=== PATIENT | female | born 1985 ===

== ENCOUNTER 2024-04-02 10:35 | Outpatient (AMB) | payer OTHER, SELFPAY ==
--- OUTSIDE RECORDS SUMMARY | 2024-04-02 10:36 | XMS_ITS | Continuity of Care Document ---
Author Organization [facility] ter Address [address] [place] [address]- Care Team Providers Care Laboratory Coordinator Name Role Phone Arjun LUJAN, Stefany Powers Primary Care Physician [phone] Encounter [facility] Date(s): 02/14/24 - 03/21/[address] [address] Attending Physician: [place] LUJAN, Dionne Grossman Admitting Physician: Dionne Salvador NP Referring Physician: Dionne Salvador NP Encounter Type: Pre-Outpt Allergies, Adverse Reactions, Alerts Substance Criticality Severity Reaction Reaction Severity Status Bee Stings Unable to assess criticality Persistent Severe Active Immunizations Given and Recorded Vaccine Date Status Refusal Reason influenza virus vaccine, inactivated 1 03/15/24 Gi curtis pneumococcal 20-valent conjugate vaccine 2 03/14/24 Given 1Early/Late Reason: Early/Late Reason: Wean to Standard Admin Times 2Early/Late Reason: Early/Late Reason: Wean to Standard Admin Times Medications acamprosate 333 mg oral delayed release tablet 2 tablet = 666 mg, By Mouth, 3 times a day, # 42 tablet, 0 Refills, Maintenance, 11/05/23 8:54:00 AM EDT, Tablet, [facility]/pharmacy #[id number], Partial fill upon patient request if the prescription is for a schedule II opioid drug., 160, cm, 11/05/23 8:46:00 EDT, Height, 57.7, kg, 11/05/23 8:46:00 EDT, Dry Weight Start Date: 11/05/23 Stop Date: 11/12/23 Status: Ordered Quantity: 42.0 Unit: tablet Repeat number: 1 citalopram 20 mg oral tablet = 20 mg, By Mouth, Daily, # 7 tablet, 0 Refills, Maintenance, 11/05/23 8:54:00 AM EDT, Tablet, [facility]/pharmacy #[id number], Partial fill upon patient request if the prescription is for a schedule II opioid drug., 160, cm, 11/05/23 8:46:00 EDT, Height, 57.7, kg, 11/05/23 8:46:00 EDT, Dry Weight Start Date: 11/05/23 Stop Date: 11/12/23 Status: Ordered Quantity: 7.0 Unit: tablet Repeat number: 1 Dandelion 0 Refills, Maintenance, 02/09/24 8:53:00 AM EST, Partial fill upon patient request if the prescription is for a schedule II opioid drug. Start Date: 02/09/24 Status: Ordered Repeat number: 1 dexamethasone 4 mg oral tablet 2 tablet = 8 mg, By Mouth, 2 times a day, Take 8 mg by mouth twice daily x 3 days starting the day before chemotherapy, # 12 tablet, 6 Refills, Maintenance, 03/13/24 1:18:00 PM EST, [facility]/pharmacy #[id number], Partial fill upon patient request if the prescription is for a schedule II opioid drug., 161, cm,03/12/24 6:48:00 EST, Height, 52.5, kg, 03/12/24 6:48:00 EST, Dry Weight Start Date: 03/13/24 Status: Ordered Quantity: 12.0 Unit: tablet Repeat number: 7 gabapentin 400 mg oral capsule 800 mg, By Mouth, 3 times a day, # 42 capsule, Refills 0, Tot. Refills 0, Maintenance, 11/05/23 8:54:00 AM EDT, Route to Pharmacy Electronically, [facility]/pharmacy #[id number], Partial fill upon patient request if the prescription is for a schedule II opioid drug., 160, cm, 11/05/23 8:46:00 EDT, Height, 57.7, kg, 11/05/23 8:46:00 EDT, Dry Weight Start Date: 11/05/23 Stop Date: 11/12/23 Status: Ordered Quantity: 42.0 Unit: capsule Repeat number: 1 hydrOXYzine hydrochloride 25 mg oral tablet 0 Refills, Maintenance, 02/09/24 8:52:00 AM EST, Partial fill upon patient request if the prescription is for a schedule II opioid drug. Start Date: 02/09/24 Status: Ordered Repeat number: 1 lidocaine-prilocaine 2.5%-2.5% topical cream 1 application, Topically, Once, # 30 Gm, 0 Refills, Soft Stop, 03/13/24 1:19:00 PM EST, Cream, [facility]/pharmacy #[id number], Partial fill upon patient request if the prescription is for a schedule II opioid drug., 1 application Topically Once, 161, cm, 03/12/24 6:48:00 EST, Height, 52.5, kg, 03/12/24 6:48:00EST, Dry Weight Start Date: 03/13/24 Status: Ordered Quantity: 30.0 Unit: g Repeat number: 1 miracle mouth wash miracle mouth wash, See Instructions, # 580 mL, Refills 0, Tot. Refills 0, Maintenance, Benadryl elixir 4 oz, nystatin susp (100,000 u/ml) 4 0z, lidocaine visc 2% 100mL, mylanta 8 oz 5-10 mL swish and spit every 2 hrs PRN mouth sores, 03/20/24 3:29:00 PM EST, Supply, 161.3, cm, 03/20/24 8:32:00 EST, Height, 52.3, kg, 03/20/24 8:32:00 EST, Dry Weight Start Date: 03/20/24 Status: Ordered Quantity: 580.0 Unit: mL Repeat number: 1 nystatin 046139 u/ml oral suspension 5 mL = 500,000 units, By Mouth, 4 times a day, for 7 days, swish and swallow, # 140 mL, 0 Refills, Acute 03/27/24 3:29:00 PM EST, 03/20/24 3:29:00 PM EST, Suspension, [facility]/pharmacy #[id number], Partial fillupon patient request if the prescription is for a schedule II opioid drug., 161.3, cm, 03/20/24 8:32:00 EST, Height, 52.3, kg, 03/20/24 8:32:00 EST, Dry Weight Start Date: 03/20/24 Stop Date: 03/27/24 Status: Ordered Quantity: 140.0 Unit: mL Repeat number: 1 ondansetron 8 mg oral tablet 1 tablet = 8 mg, By Mouth, Every 8 hours, PRN Nausea & Vomiting, # 30 tablet, 0 Refills, Maintenance, 03/13/24 1:18:00 PM EST, Tablet, [facility]/pharmacy #[id number], Partial fill upon patient request if theprescription is for a schedule II opioid drug., 161, cm, 03/12/24 6:48:00 EST, Height, 52.5, kg, 03/12/24 6:48:00 EST, Dry Weight Start Date: 03/13/24 Status: Ordered Quantity: 30.0 Unit: tablet Repeat number: 1 prochlorperazine 10 mg oral tablet 1 tablet = 10 mg, By Mouth, 3 times a day, PRN Nausea & Vomiting, # 30 tablet, 0 Refills, Maintenance, 03/13/24 1:18:00 PM EST, [facility]/pharmacy #[id number], Partial fill upon patient request if the prescription is for a schedule II opioid drug., 161, cm, 03/12/24 6:48:00 EST, Height, 52.5, kg, 03/12/24 6:48:00 EST, Dry Weight Start Date: 03/13/24 Status: Ordered Quantity: 30.0 Unit: tablet Repeat number: 1 propranolol 10 mg oral tablet 10 mg, By Mouth, 2 times a day, # 14 tablet, Refills 0, Tot. Refills 0, Maintenance, 11/05/23 8:54:00AM EDT, Route to Pharmacy Electronically, [facility]/pharmacy #[id number], Partial fill upon patient request if the prescription is for a schedule II opioid drug., 160, cm, 11/05/23 8:46:00 EDT, Height, 57.7, kg, 11/05/23 8:46:00 EDT, Dry Weight Start Date: 11/05/23 Stop Date: 11/12/23 Status: Ordered Quantity: 14.0 Unit: tablet Repeat number: 1 traZODone 50 mg oral tablet Refills 0, Maintenance, 02/09/24 8:52:00 AM EST, Partial fill upon patient request if the prescription is for a schedule II opioid drug. Start Date: 02/09/24 Status: Ordered Repeat number: 1 Problem List Condition Confirmation Course Effective Dates Status Health St atus Informant Breast cancer, left breast Confirmed Active Substance use disorder Confirmed Active Social History Social History Type Response Smoking Status Former smoker, quit more than 30 days ago entered on: 02/22/24 Sex Sex Representation Female (finding) Patient Care team information Care Team Personnel Name: Stefany Díaz NP Position: [facility] Outreach Member Role: PCP Address: [address] [place] [address] Telecom: Name: Naif Calhoun RN Position: [facility] Onco RN Member Role: Primary Care Nurse Care Team Related Persons Name: VIPUL CHESTER Insurance Providers Guarantor name: MORIS CHESTER Health Plan Information #: 1 Payer: [employer] Member Number: [id number] Policy Number: NA Group Number: NA Health Plan Information #: 2 Payer: [employer] Member Number: [id number] Policy Number: NA Group Number: NA
--- OUTSIDE RECORDS SUMMARY | 2024-04-02 10:36 | XMS_ITS | Continuity of Care Document ---
Author Organization [facility] Address [address] [place] [address]- Care Team Providers Care Finishing And Shipping Supervisor Name Role Phone Arjun LUJAN, Stefany Powers Primary Care Physician [phone] Encounter [facility] Date(s): 02/08/24 - 03/09/24 [facility] [address] [place] [address]- Encounter Type: Triage Allergies, Adverse Reactions, Alerts Substance Criticality Severity Reaction Reaction Severity Status Bee Stings Unable to assess criticality Persistent Severe Active Medications acamprosate 333 mg oral delayed release tablet 2 tablet = 666 mg, By Mouth, 3 times a day, # 42 tablet, 0 Refills, Maintenance, 11/05/23 8:54:00 AM EDT, Tablet, [facility]/pharmacy #[id number], Partial fill upon patient request if [...] Refills, Maintenance, 11/05/23 8:54:00 AM EDT, Tablet, [id number], Partial fill upon patient request if [...] Date: 02/09/24 Status: Ordered Repeat number: 1 gabapentin 400 mg oral capsule 800 mg, By Mouth, 3 times a day, # 42 capsule, Refills 0, Tot. Refills 0, Maintenance, 11/05/23 8:54:00 AM EDT, Route to Pharmacy Electronically, [facility]/pharmacy #[id number], Partial fill upon patient request [...] Date: 02/09/24 Status: Ordered Repeat number: 1 propranolol 10 mg oral tablet 10 mg, By Mouth, 2 times a day, # 14 tablet, Refills 0, Tot. Refills 0, Maintenance, 11/05/23 8:54:00AM EDT, Route to Pharmacy Electronically, [facility]/pharmacy #[id number], Partial fill upon patient request [...] a schedule II opioid drug. Start Date: 11/7/24 Status: Ordered Repeat number: 1 Problem List [...] Team Personnel Name: Stefany Díaz NP Position: S Outreach Member Role: PCP Address: [address] [place] [address] Telecom: Care Team Related Persons Name: VIPUL CHESTER Insurance Providers Guarantor name: MORIS NEMO Health Plan Information #: 1 Payer: [employer] Member Number: NA Policy Number: NA Group Number: NA
--- OUTSIDE RECORDS SUMMARY | 2024-04-02 10:36 | XMS_ITS | Continuity of Care Document ---
Author Organization [facility] Address [address] [place] [address]- Care Team Providers Care National Account Manager Name Role Phone Arjun LUJAN, Stefany Powers Primary Care Physician [id number] Date(s): 02/24/24 - 03/25/24 [facility] [address] [place] [id number] Encounter Type: Triage Allergies, Adverse Reactions, Alerts [...] Maintenance, 11/05/23 8:54:00 AM EDT, Tablet, [id number], Partial fill upon patient request if the prescription is for a schedule II opioid drug., 160, cm, 11/05/23 8:46:00 EDT, Height, 57.7, kg, 11/05/23 8:46:00 EDT, Dry Weight Start Date: 11/05/23 Stop Date: 11/12/23 Status: Ordered Quantity: 42.0 Unit: tablet Repeat number: 1 citalopram 20 mg oral tablet = 20 mg, By Mouth, Daily, # 7 tablet, 0 Refills, Maintenance, 8/3/24 8:54:00 AM EDT, Tablet, [facility]/pharmacy #[id number], Partial fill upon [...] 6 Refills, Maintenance, 03/13/24 1:18:00 PM EST, [facility]/pharmacy #[id number], Partial fill upon [...] 8:54:00 AM EDT, Route to Pharmacy Electronically, [facility]/pharmacy #[id number], Partial fill upon [...] Soft Stop, 03/13/24 1:19:00 PM EST, Cream, [facility]/pharmacy #[id number], Partial fill upon [...] 580.0 Unit: mL Repeat number: 1 nystatin 835209 u/ml oral suspension 5 mL = 500,000 units, By Mouth, 4 times a day, for 7 days, swish and swallow, # 140 mL, 0 Refills, Acute 03/27/24 3:29:00 PM EST, 03/20/24 3:29:00 PM EST, Suspension, [facility]/pharmacy #[id number], Partial fillupon patient request if [...] Refills, Maintenance, 03/13/24 1:18:00 PM EST, Tablet, [facility]/pharmacy #[id number], Partial fill upon [...] 0 Refills, Maintenance, 03/13/24 1:18:00 PM EST, [facility]/pharmacy #[id number], Partial fill upon [...] 11/05/23 8:54:00AM EDT, Route to Pharmacy Electronically, [facility]/pharmacy #[id number], Partial fill upon [...] Team Personnel Name: Stefany Díaz NP Position: [facility] Outreach Member Role: PCP Address: [address] [place] [id number] Telecom: Name: Naif Calhoun RN Position: [facility] Onco RN Member Role: Primary Care Nurse Care Team Related Persons Name: VIPUL CHESTER Insurance Providers Guarantor name: MORIS [facility] Information #: 1 Payer: [employer] Member Number: NA Policy Number: NA Group Number: NA
--- OUTSIDE RECORDS SUMMARY | 2024-04-02 10:36 | XMS_ITS | Continuity of Care Document ---
Author Organization [facility] Address [address] [place] [address]- Care Team Providers Care No Experience Name Role Phone Arjun LUJAN, Stefany Powers Primary Care Physician Encounter [facility] Date(s): 02/14/24 - 03/15/24 [facility] [address] [place] [address]- Encounter Type: Triage Allergies, Adverse Reactions, Alerts [...] Refills, Maintenance, 11/05/23 8:54:00 AM EDT, Tablet, [facility]/pharmacy #[id number], Partial fill upon patient request [...] 6 Refills, Maintenance, 03/13/24 1:18:00 PM EST, [facility]/pharmacy #[id number], Partial fill upon patient request [...] 8:54:00 AM EDT, Route to Pharmacy Electronically, [facility]/pharmacy #[id number], Partial fill upon patient request [...] Soft Stop, 03/13/24 1:19:00 PM EST, Cream, [facility]/pharmacy #[id number], Partial fill upon patient request if the prescription is for a schedule II opioid drug., 1 application Topically Once, 161, cm, 03/12/24 6:48:00 EST, Height, 52.5, kg, 03/12/24 6:48:00EST, Dry Weight Start Date: 03/13/24 Status: Ordered Quantity: 30.0 Unit: g Repeat number: 1 ondansetron 8 mg oral tablet 1 tablet = 8 mg, By Mouth, Every 8 hours, PRN Nausea & Vomiting, # 30 tablet, 0 Refills, Maintenance, 03/13/24 1:18:00 PM EST, Tablet, [facility]/pharmacy #[id number], Partial fill upon patient request [...] 0 Refills, Maintenance, 03/13/24 1:18:00 PM EST, [facility]/pharmacy #[id number], Partial fill upon patient request [...] 11/05/23 8:54:00AM EDT, Route to Pharmacy Electronically, [facility]/pharmacy #[id number], Partial fill upon patient request [...] Team Personnel Name: Stefany Díaz NP Position: [facility] Outreach Member Role: PCP Address: [address] [place] [address] Telecom: Name: Naif Calhoun RN Position: [facility] Onco RN Member Role: Primary Care Nurse Care Team Related Persons Name: VIPUL CHESTER Insurance Providers Guarantor name: MORIS CHESTER Health Plan Information #: 1 Payer: [employer] Member Number: NA Policy Number: NA Group Number: NA
--- OUTSIDE RECORDS SUMMARY | 2024-04-02 10:36 | XMS_ITS | Continuity of Care Document ---
Author Organization [facility] ter Address [address] [place] [address]- Care Team Providers Care Cell Support Operator Name Role Phone Arjun LUJAN, Stefany Powers Primary Care Physician [phone] Encounter [facility] ACCT R [id number] Date(s): 03/12/24 - 03/12/[address] [address] Discharge Disposition: A-D/C Home Attending Physician: Bjorn Au DO Admitting Physician: Bjorn Au DO Referring Physician: Bjorn Au DO Encounter Type: Disch Daystay Allergies, Adverse Reactions, Alerts Substance Criticality Severity [...] 8:54:00 AM EDT, Route to Pharmacy Electronically, [facility]/pharmacy #[id number], Partial fill upon patient [...] 11/05/23 8:54:00AM EDT, Route to Pharmacy Electronically, [facility]/pharmacy #[id number], Partial fill upon patient [...] Condition Confirmation Course Effective Dates Status Health atus Informant Breast cancer, left breast Confirmed Active Substance use disorder Confirmed Active Results Radiology Reports * Exam Date Time Procedure Performing Provider Status 03/12/24 7:43 AM IR End of Case Report Aut h (Verified) IR End of Case Report * Exam Date Time Procedure Performing Provider Status 03/12/24 7:43 AM IR Portacath Insertion Au th (Verified) Notes: (IR Portacath Insertion) Reason For Exam: Other: IR Portacath Insertion Patient: MORIS CHESTER Study Date: 03/12/2024 Performing: Bhanu Snider PA-C Referring: : 1985 Age: 39 Gender: FEMALE Pre-procedure diagnosis and Indication: Patient with history of breast cancer presents today for port placement. Exam: Prior to the procedure, the patient was seen and the nature of the procedure explained along with its attendant risks and benefits to the patient . Informed consent was obtained from, the patient . The patient underwent a pre-anesthesia assessment. The patient arrived in IR room 1 for a portacath insertion PROCEDURE: The patient was positioned supine and secured with arm boards. The access site was evaluated with ultrasound and images archived. The site was prepped with chloraprep and draped in the usual sterile fashion. Patient received moderate sedation administered under my direct supervision. Local anesthetic was given and access was gained into the right internal jugular vein using a regular micropuncture set under ultrasound guidance. A pre-pectoral subcutaneous Port pocket was formed in the right chest and the catheter was tunneled. The catheter was cut down to 24 cm and inserted. The catheter was tested with good flow and return. No leaks were noted. The port was secured into the pocket using 3-0 prolene suture. The pocket was closed using 3-0 vicryl suture/4-0 monocryl and tissue adhesive was used on the access site. The port was left accessed with an appropriately sized radford needle. The access was tested and flushed as noted above. Catheter used: Second & Fourthp DIGNITY PORT 6.6F - Qty: 1 Each Part #: [id number] GTIN: [id number] Lot #: [id number] Exp Date: 2028-08-01 The sterile field was maintained throughout the procedure and patient tolerated the procedure well with no complications of the procedure estimated blood loss was minimal Specimens/samples: no specimens or samples were sent for this procedure Patient transferred to, Pre / Post Procedure Unit Post procedure instructions sent in envelope with the patient Impression: Satisfactory ultrasound and fluoroscopically guided placement of chest port with the catheter tip at the SVC/RA junction. The patient tolerated the procedure well with no complications of the procedure Access the port using sterile technique including use of sterile gloves, alcohol-based skin preparation and face mask/ shield.Should port malfunction develop please contact this service directly rather than having a diagnostic study performed elsewhere. This is not necessary. Fluoroscopy time and dose Total Fluoro Time: 0.4 mins Total dose 2 mGy Total DAP 35.2 - ?Gy/m2 No contrast was used for this procedure Local Anesthetic Lidocaine 1% 10 ml's SQ Lidocaine 1% w/ 1:100,000 epinephrine 15 ml's SQ Moderate sedation was provided From 08:12:00 to 08:43:00 Moderate Sedation Agent Dose Route Time By Fentanyl 50 mcg IV 08:12:35 LD Versed 1 mg IV 08:12:39 LD Signed By Bhanu Snider PA-C On 03/12/2024 9:29:43 AM Bhanu Snider PA-C, Sidak MD Dictated By: Bhanu Sanders Dictated Date/Time: 03/12/24 7:43 am Reviewed By: Bhanu Sanders Signed By: Bhanu Sanders Signed Date/Time: 03/12/24 7:43 am Transcribed By: GALINDO Transcribed Date/Time: 03/12/24 7:43 am Vital Signs Most recent to oldest [Reference Range]: 1 Height 161 cm (03/12/24 6:48 AM) Weight 52.5 kg (03/12/24 6:48 AM) Oxygen Saturation [94-100 %] 98 % (03/12/24 6:40 AM) Pulse Rate [55-90 bpm] 53 bpm *L* (03/12/24 6:40 AM) Blood Pressure [90-138/55-84 mm Hg] 100/ 66mm Hg (03/12/24 6:40 AM) Respiratory Rate [16-30 br/min] 20 br/mi n (03/12/24 6:40 AM) Temperature [96.8-100.4 DegF] 97.9 DegF (03/12/24 6:40 AM) Mode of Delivery (Oxygen) Room air (03/12/24 6:40 AM) Blood pressure sites Arm, right (03/12/24 6:40 AM) Temperature Route Oral (03/12/24 6:40 AM) Dry Weight 52.5 kg (03/12/24 6:48 AM) Social History Social History Type Response Smoking Status Former smoker, quit more than 30 days ago entered on: 02/22/24 Sex Sex Representation Female (finding) Hospital Progress note * Audra FORREST, Winter: PERFORM, SIGN, VERIFY Judy FORREST, Natalia Alba: SIGN, MODIFY Judy FORREST, Natalia Alba: MODIFY, SIGN Judy FORREST, Natalia M: SIGN, MODIFY Judy FORREST, Natalia Alba: MODIFY Event Display: Progress Note Hospital Authored Date: [id number] Patient: MORIS CHESTER Age: 39 years Sex: Female : 1985 Associated Diagnoses: None Author: Audra FORREST, Winter Findings Nursing Data IV Lines. : IV Lines. 03/12/2024 7:00 EST Right Brachial vein 22 gauge Peripheral IV Activity: Start Peripheral IV Insertion Date/Time: 03/12/2024 7:21 Peripheral IV Number of Attempts: 1 Peripheral IV Site Assessment: Flushes Well, Good Blood return . Vital Signs : VITAL SIGNS SECTION 03/12/2024 6:40 EST Temperature 97.9 DegF Temperature Route Oral Pulse Rate 53 bpm L Respiratory Rate 20 br/min Systolic Blood Pressure 100 mm Hg Diastolic Blood Pressure 66 mm Hg Blood pressure sites Arm, right Mean Arterial Pressure 77 mm Hg Pulse Pressure 34 mm Hg Oxygen Saturation 98 % Mode of Delivery (Oxygen) Room air . Narrative/Incidental pt here for port insertion for chemo treatment, alert and oriented,.c/o pain to Rt chest where, the tumor is , at admission time. NPO since midnight, Meds taken at 0500. Labs drawn, sent. Pt alreadyout to procedure.. * Natalia Kim RN: PERFORM Event Display: Progress Note Hospital Authored Date: patient returned from planned procedure VSS site clean and dry no c/opain or discomfort. * Natalia Kim RN: PERFORM Event Display: Progress Note Hospital Authored Date: patient demonstrates good knowledge regarding discharge instructions Note * Natalia Kim RN: PERFORM Event Display: Discharge/Transfer Note Hospital Authored Date: Nursing Discharge Note Entered On: 03/12/2024 10:34 EST Performed On: 03/12/2024 10:34 EST by Natalia Kim RN Nursing Discharge Note 2 Discharge Time : 03/12/2024 10:34 EST Discharge Level of Care at Discharge : Home/Longterm/Foster Care Patient Left Unit Via : Wheelchair Patient Accompanied Off Unit with : Significant other DC Instructions Provided & Signed by Pt : Yes Patient Understands D/C Instructions : Yes Patient Instructions Discharge Signed : Yes Did Pt have Specialty Bed or Wound Vac : No Natalia Kim RN - 03/12/2024 10:34 EST Patient Care team information Care Team Personnel Name: Stefany Díaz NP Position: [facility] Outreach Member Role: PCP Address: [address] [place] [address] Telecom: Care Team Related Persons Name: VIPUL CHESTER Insurance Providers Guarantor name: MORIS NEMO [facility] Information #: 1 Payer: [employer] Member Number: [id number] Policy Number: NA Group Number: [facility] Health Plan Information #: 2 Payer: [employer] Member Number: [id number] Policy Number: NA Group Number: NA
--- OUTSIDE RECORDS SUMMARY | 2024-04-02 10:36 | XMS_ITS | Continuity of Care Document ---
Author Organization [facility] Address [address] [place] [address]- Care Team Providers Care Magisterial District Judge Name Role Phone Arjun LUJAN, Stefany Powers Primary Care Physician [phone] Encounter [facility] Date(s): 02/22/24 - 03/23/24 [facility] [address] [place] [address]- Attending Physician: Oscar Livingston Admitting Physician: Oscar Livingston Referring Physician: Oscar Livingston Encounter Type: Triage Allergies, Adverse Reactions, Alerts [...] Refills, Maintenance, 11/05/23 8:54:00 AM EDT, Tablet, [facility]/pharmacy #[id number], Partial fill upon patient request if the [...] Refills, Maintenance, 11/05/23 8:54:00 AM EDT, Tablet, [facility]/pharmacy #[id number], Partial fill upon patient request if [...] 6 Refills, Maintenance, 03/13/24 1:18:00 PM EST, [facility]/pharmacy #[id number], Partial fill upon patient request if [...] 8:54:00 AM EDT, Route to Pharmacy Electronically, [facility]/pharmacy #[id number], Partial fill upon patient request if [...] Soft Stop, 03/13/24 1:19:00 PM EST, Cream, [facility]/pharmacy #[id number], Partial fill upon patient request if [...] 580.0 Unit: mL Repeat number: 1 nystatin [id number] u/ml oral suspension 5 mL = 500,000 units, By Mouth, 4 times a day, for 7 days, swish and swallow, # 140 mL, 0 Refills, Acute 03/27/24 3:29:00 PM EST, 03/20/24 3:29:00 PM EST, Suspension, [facility]/pharmacy #[id number], Partial fillupon patient request if the [...] Refills, Maintenance, 03/13/24 1:18:00 PM EST, Tablet, [facility]/pharmacy #[id number], Partial fill upon patient request if [...] 0 Refills, Maintenance, 03/13/24 1:18:00 PM EST, [facility]/pharmacy #[id number], Partial fill upon patient request if [...] 11/05/23 8:54:00AM EDT, Route to Pharmacy Electronically, [facility]/pharmacy #[id number], Partial fill upon patient request if [...] Team Personnel Name: Stefany Díaz NP Position: [facility] Outreach Member Role: PCP Address: [address] [place] [address] Telecom: Name: Naif Calhoun RN Position: [facility] Onco RN Member Role: Primary Care Nurse Care Team Related Persons Name: VIPUL CHESTER Insurance Providers Guarantor name: MORIS NEMO Health Plan Information #: 1 Payer: [employer] Member Number: NA Policy Number: NA Group Number: NA
--- OUTSIDE RECORDS SUMMARY | 2024-04-02 10:36 | XMS_ITS | Continuity of Care Document ---
Author Organization [facility] Address [address] [place] [address]- Care Team Providers Care Keyboard Instrument Repairer Name Role Phone Arjun LUJAN, Stefany Powers Primary Care Physician [phone] [place] [facility] [place]): 02/09[place]24 - 03/10/24 [facility] [address] [place] [id number] Attending Physician: Oscar Livingston Admitting Physician: Oscar [...] Care team information Care Team Personnel Name: Arjun LUJAN, Stefany Pwoers Position: [facility] Outreach Member Role: PCP Address: [address] [place] [id number] Telecom: Care Team Related Persons Name: VIPUL CHESTER Insurance Providers Guarantor name: MORIS CHESTER Health Plan Information #: 1 Payer: [employer] Member Number: NA Policy Number: NA Group Number: NA
--- NOTE | 2024-04-02 10:48 | A.OFFPC_ITS ---
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 every 3 years if you have no risk factors for diabetes. Screening may need to start earlier and be repeated more often if you have other risk factors for diabetes, such as: You have a first degree relative with diabetes. You are overweight or have obesity. You have high blood pressure, prediabetes, or a history of heart disease. Screening for diabetes should be done if you are planning to become and you are overweight and have other risk factors such as high blood pressure. DENTAL EXAM Go to the dentist once or twice every year for an exam and cleaning. Your dentist will evaluate if you need more frequent visits. EYE EXAM Have an eye exam every 5 to 10 years before age 40. If you have vision problems, have an eye exam every 2 years or more often if recommended by your provider. You should have an eye exam that includes an examination of your retina (back of your eye) at least every year if you have diabetes. IMMUNIZATIONS Commonly needed vaccines include: Flu shot: get one every year. COVID-19 vaccine: ask your provider what is best for you. Tetanus-diphtheria and acellular pertussis (Tdap) vaccine: have one at or after age 19 as one of your tetanus-diphtheria vaccines if you did not receive it as an adolescent. Tetanus-diphtheria: have a booster (or Tdap) every 10 years. Varicella vaccine: receive 2 doses if you never had chickenpox or the varicella vaccine. Hepatitis B vaccine: receive 2, 3, or 4 doses, depending on your exact circumstances. Measles, mumps, and rubella (MMR) vaccine: receive 1 to 2 doses if you are not already immune to MMR. Your provider can tell you if you are immune. Ask your provider about the human papillomavirus (HPV) vaccine if: You have not received the HPV vaccine in the past You have not completed the full vaccine series (you should catch up on this shot) Ask your provider if you should receive other immunizations if you have certain health problems that increase your risk for some diseases such as pneumonia. INFECTIOUS DISEASE SCREENING Women who are sexually active should be screened for chlamydia and gonorrhea up until age 25. Women 25 years and older should be screened for chlamydia and gonorrhea if at high risk. Screening for hepatitis C: All adults ages 18 to 79 should get a one-time test for hepatitis C. people should be screened at every . Screening for human immunodeficiency virus (HIV): All people ages 15 to 65 should get a one-time test for HIV. Depending on your lifestyle and medical history, you may also need to be screened for infections such as syphilis and HIV, as well as other infections. PHYSICAL EXAM All adults should visit their provider from time to time, even if they are healthy. The purpose of these visits is to: Screen for disease Assess your risk of future medical problems Encourage a healthy lifestyle Update your vaccinations and other preventive care services Maintain a relationship with a provider in case of an illness Your height, weight, and BMI should be checked at every exam. During your exam, your provider may ask you about: Depression and anxiety Diet and exercise Alcohol and tobacco use Safety issues, such as using seat belts, smoke detectors, and intimate partner violence Your medicines and risk for interactions SKIN SELF-EXAM Your provider may check your skin for signs of skin cancer, especially if you're at high risk, such as if you: Have had skin cancer before Have close relatives with skin cancer Have a weakened immune system OTHER SCREENING Talk with your provider about colon cancer screening if you have a strong family history of colon cancer or polyps, or if you have had inflammatory bowel disease or polyps yourself. Routine bone density screening of women under 40 is not recommended.
[2024-04-02 11:05] VITALS: BP 98/66; PULSE 65; RESP 12; O2SAT 98; BMI 21.3
== END 2024-04-02 12:16 | disposition home or self-care (01) ==
PROVIDERS: PCP Nurse Practitioner Family; Visit Provider Nurse Practitioner Family
DX: Z00.00 Encounter for general adult medical examination without abnormal findings (principal); F33.1 Major depressive disorder, recurrent, moderate; C50.412 Malignant neoplasm of upper-outer quadrant of left female breast; L20.82 Flexural eczema; F41.1 Generalized anxiety disorder; F19.90 Other psychoactive substance use, unspecified, uncomplicated; F45.22 Body dysmorphic disorder; R63.0 Anorexia; Z17.1 Estrogen receptor negative status [ER-]; Z28.21 Immunization not carried out because of patient refusal; Z87.891 Personal history of nicotine dependence

== ENCOUNTER → 2024-04-02 10:35 | Outpatient (BNVA) | payer OTHER, SELFPAY | PROVIDERS: PCP Nurse Practitioner Family; Visit Provider Nurse Practitioner Family | DX: Z00.01 Encounter for general adult medical examination with abnormal findings (principal); F33.1 Major depressive disorder, recurrent, moderate; F41.1 Generalized anxiety disorder; F19.90 Other psychoactive substance use, unspecified, uncomplicated; L20.82 Flexural eczema; F45.22 Body dysmorphic disorder; R63.0 Anorexia; C50.412 Malignant neoplasm of upper-outer quadrant of left female breast; Z17.1 Estrogen receptor negative status [ER-]; Z87.891 Personal history of nicotine dependence | CPT/HCPCS: 96127; 99202; 99386 ==

== ENCOUNTER 2024-11-21 13:52 | Outpatient (AMB) | payer OTHER, SELFPAY ==
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
[2024-11-21 14:12] VITALS: BP 94/62; PULSE 93; RESP 12; TEMP 36.8; O2SAT 94; BMI 19.0
--- OUTSIDE RECORDS SUMMARY | 2024-11-21 14:52 | XMS_ITS | Clinical Summary ---
Author Organization [facility] Address [address] [place] [id number] Phone Care Team Providers Care Java Project Manager Name Role Phone Cortney Antonio MD Primary Care Provider + [phone] Allergies No known active allergies Medications predniSONE (DELTASONE) 20 MG tablet Take 3 tablets (60 mg total) by mouth daily with breakfast. 30 tablet 1 04/06/2018 Active Active Problems No known active problems Family History Medical History Relation Comments Retinal lattice degeneration Brother Hypertension Father Cancer Maternal Uncle Cancer Mother Relation Status Comments Brother Father Maternal Uncle Mother Social History Tobacco Use Types Packs/Day Years Used Date Smoking Tobacco: Light Smoker Smokeless Tobacco: Never Alcohol Use Standard Drinks/Week Comments No 0 (1 standard drink = 0.6 oz pur e alcohol) Education Answer Date Recorded Are you interested in more education? Not on sarina e 07/30/2022 Are you concerned about learning? Not on file 07/30/2022 No 07/30/2022 No 07/30/2022 Digital Access Answer Date Recorded No 08/30/2022 No 08/30/2022 Reliable internet access at home? Not on file 08/30/2022 Device with a working camera? Not on file Comments Unknown Sex and Gender Information Value Date Recorded Sex Assigned at Not on file Legal Sex Female 8:13 PM EST Gender Identity Not on file Sexual Orientation Not on file Last Filed Vital Signs Vital Sign Reading Time Taken Comments Blood Pressure 116/80 06/16/2018 12:19 PM EDT Pulse 55 06/16/2018 12:19 PM EDT Temperature - - Respiratory Rate - - Oxygen Saturation - - Inhaled Oxygen Concentration - - Weight - - Height - - Body Mass Index - - Plan of Treatment Health Maintenance Due Date Last Done Comments Adult Td,Tdap Booster 1983 DEPRESSION SCREENING 1995 SMOKING Hx and SMOKELESS TOB ACCO SCREENING 1996 HEPATITIS C SCREENING 2001 HIV ONE-TIME SCREENING (18-6 5 YEARS) 2001 PNEUMOCOCCAL VACCINES (0-49 years) (1 of 2 - PCV) 2002 PAP SMEAR 2004 MAMMOGRAM 2023 COVID-19 VACCINE (2 - 2023-2 5 season) 2023 08/13/2020 HEPATITIS A VACCINES Aged Out No long er eligible based on patient's age to complete this topic HIB VACCINES Aged Out No longer eligi ble based on patient's age to complete this topic MENINGOCOCCAL VACCINES (ACWY) Aged Out No longer eligible based on patient's age to complete this topic MENINGOCOCCAL VACCINES (B) Aged Out N o longer eligible based on patient's age to complete this topic Medical Devices Not on file Insurance [facility] Care Teams Java Project Manager Relationship Specialty Start Date End Date Cortney Antonio MD [address] [place] [address] [address] [place] [address] PCP - General Family Medicine 09/17/22 Additional Source Comments The information contained in this document represents components of the legal health record. It is not the complete legal health record.[facility]
--- OUTSIDE RECORDS SUMMARY | 2024-11-21 14:52 | XMS_ITS | Clinical Summary ---
Author Organization [employer] Address [address] [place] [address] Care Team Providers Care Hvac R Instructor Name Role Phone Unavailable Primary Care Provider Unavailabl e Social History Tobacco Use Types Packs/Day Years Used Date Smoking Tobacco: Never Assessed Comments Unknown Sex and Gender Information Value Date Recorded Sex Assigned at Female 11/23/2023 3:06 PM EDT Legal Sex Female 3:01 PM EDT Gender Identity Female 11/23/2023 3:06 PM EDT Sexual Orientation Don't know 11/23/2023 3: 06 PM EDT Plan of Treatment Health Maintenance Due Date Last Done Comments Depression Screening 1983 HIV Screening 1983 SDOH Screening 1983 Disability Screening 1983 Alcohol/Substance Use Screening 1995 Tobacco Screening 1995 Family Planning (PISQ) 1998 HPV Vaccines (1 - 3-dose series) 1998 Hepatitis C Screening 2001 DTaP/Tdap/Td Vaccines (1 - Tdap) 2002 Hepatitis B Vaccines (1 of 3 - 19+ 3-dose series) 2002 Pap Smear 2004 Cervical Cancer Screening 2013 HPV/Cotest 2013 COVID-19 Vaccine (1 - 2023-2 5 season) 2023 Influenza Vaccine (#1) 2024 03/15/2024 Zoster Vaccines (1 of 2) 2033 RSV Patients and Pa tients Aged 60 years or older (1 - 1-dose 75+ series) 2058 Pneumococcal Vaccine: Pediat rics (0 to 5 Years) and At-Risk Patients (6 to 49) Years Aged Out 03/14/2024 No longer eligi ble based on patient's age to complete this topic HIB Vaccines Aged Out No longer eligi ble based on patient's age to complete this topic Hepatitis A Vaccines Aged Out No long er eligible based on patient's age to complete this topic IPV Vaccines Aged Out No longer eligi ble based on patient's age to complete this topic Meningococcal B Vaccine Aged Out No l onger eligible based on patient's age to complete this topic Meningococcal Vaccine Aged Out No joseph ellen eligible based on patient's age to complete this topic RSV under 20 months Aged Out No longe r eligible based on patient's age to complete this topic Rotavirus Vaccines Aged Out No longer eligible based on patient's age to complete this topic Insurance [facility]
== END 2024-11-21 14:42 | disposition home or self-care (01) ==
LOC: HO.HMCFM 13:53
PROVIDERS: PCP Nurse Practitioner Family; Visit Provider Nurse Practitioner Family
DX: R63.0 Anorexia (principal); F33.1 Major depressive disorder, recurrent, moderate; C50.412 Malignant neoplasm of upper-outer quadrant of left female breast; F45.22 Body dysmorphic disorder; F41.1 Generalized anxiety disorder; F19.90 Other psychoactive substance use, unspecified, uncomplicated; Z17.1 Estrogen receptor negative status [ER-]; L20.82 Flexural eczema; Z90.13 Acquired absence of bilateral breasts and nipples

== ENCOUNTER → 2024-11-21 13:52 | Outpatient (BNVA) | payer OTHER, SELFPAY | PROVIDERS: PCP Nurse Practitioner Family; Visit Provider Nurse Practitioner Family | DX: F41.1 Generalized anxiety disorder (principal); F45.22 Body dysmorphic disorder; R63.0 Anorexia; K21.9 Gastro-esophageal reflux disease without esophagitis; F33.1 Major depressive disorder, recurrent, moderate; F19.90 Other psychoactive substance use, unspecified, uncomplicated; Z17.1 Estrogen receptor negative status [ER-]; Z90.13 Acquired absence of bilateral breasts and nipples; Z85.3 Personal history of malignant neoplasm of breast | CPT/HCPCS: 96127; 99212 ==